=== PATIENT | male | born 1965 | race African-American/Black ===

== ENCOUNTER 2016-06-05 23:15 | Emergency (ER) | payer SELFPAY ==
[~2016-06-05] VITALS: Ht 177.8 cm; Wt 82.0 kg
[2016-06-05 23:27] VITALS: BP 136/98; PULSE 97; RESP 16; TEMP 98.8; O2SAT 96
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
[2016-06-06] MEDS ORDERED: SODIUM CHLOR 0.9% 1000 ML INJ 1,000 ML IV ONE (00:15)
[2016-06-06] MEDS ORDERED: TETANUS/DIPHTHERIA TOXOID ADULT 0.5 ML VIAL IM ONE (00:15)
[2016-06-06] MEDS ORDERED: SODIUM CHLORIDE 0.9% FLUSH 5 ML FLUSH IVF PRN (00:15)
[2016-06-06 00:31] VITALS: RESP 20
[2016-06-06 00:37] LABS: AUTOMATED NEUTROPHIL # 2.9 TH/MM3 (1.8-7.7); BASOPHIL # 0.1 TH/MM3 (0-0.2); BASOPHIL % 0.9 % (0.0-2.0); EOSINOPHIL # 0.1 TH/MM3 (0-0.4); HEMATOCRIT 43.3 % (39.0-51.0); HEMO FLAGS DIFF FINAL; LYMPH % 44.3 % (9.0-44.0); LYMPHOCYTE # 2.6 TH/MM3 (1.0-4.8); MEAN CELL VOLUME 85.5 FL (80.0-100.0); NEUT % 49.8 % (16.0-70.0); PLATELET COUNT 301 TH/MM3 (150-450); RED BLOOD COUNT 5.06 MIL/MM3 (4.50-5.90); WHITE BLOOD COUNT 5.9 TH/MM3 (4.0-11.0)
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
[2016-06-06 01:07] LABS: BICARBONATE 23.9 MEQ/L (21.0-32.0)
[2016-06-06 01:08] LABS: POTASSIUM 3.8 MEQ/L (3.5-5.1)
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
[2016-06-06 08:17] VITALS: BP 127/78
== END 2016-06-06 08:28 | disposition home or self-care (01) ==
LOC: NEPE 23:15
DX: F10.121 Alcohol abuse with intoxication delirium (principal); R41.82 Altered mental status, unspecified; I10 Essential (primary) hypertension; S00.83XA Contusion of other part of head, initial encounter; V19.9XXA Pedal cyclist (driver) (passenger) injured in unspecified traffic accident, initial encounter; Y93.55 Activity, bike riding; Y92.414 Local residential or business street as the place of occurrence of the external cause; F17.210 Nicotine dependence, cigarettes, uncomplicated; Z23 Encounter for immunization
CPT/HCPCS: 70450; 70486; 71010; 72125; 72170; 80048; 80307; 85025; 90471; 90714; 96360; 99285; J7030

== ENCOUNTER 2017-03-08 15:11 | Emergency (ER) | payer SELFPAY ==
[~2017-03-08] VITALS: Ht 175.3 cm; Wt 72.7 kg
[2017-03-08 15:12] VITALS: BP 160/99; PULSE 110; RESP 12; TEMP 97.6; O2SAT 97
--- NOTE | 2017-03-08 17:11 | PD ---
HPI Chief Complaint: Cold / Flu Symptoms Time Seen by Provider: 16:55 Travel History International Travel<30 days: No Contact w/Intl Traveler<30days: No Traveled to known affect area: No History of Present Illness HPI 52 -year-old male here requesting a return to work note. Patient reports he had fever, cough, body aches, diarrhea over week ago. The symptoms kept him out of work for approximately lost week. He reports he is feeling better today and has no current symptoms. Patient is also requesting that a painful lump in his left posterior scalp evaluated. He reports it's been there for greater than a year. Occasionally drains a thick white discharge which is foul- smelling. He denies fever or chills. PFSH Past Medical History Medical History: Denies Significant Hx Autoimmune Disease: No Blood Disorders: No Cancer: No Cardiovascular Problems: Yes High Cholesterol: No Diabetes: No Diminished Hearing: No Endocrine: No Gastrointestinal Disorders: No Genitourinary: Yes Hypertension: Yes Immune Disorder: No Implanted Vascular Access Dvce: No Musculoskeletal: Yes Neurologic: Yes Psychiatric: No Reproductive: No Respiratory: No Immunizations Current: No Thyroid Disease: No Tetanus Vaccination: < 5 Years Past Surgical History Surgical History: No Previous Surgery Arteriovenous Shunt: No Insulin Pump: No Joint Replacement: No Pacemaker: No Other Surgery: No Social History Alcohol Use: No (denies) Tobacco Use: No (denies) Substance Use: No (denies + in past) Allergies-Medications (Allergen,Severity, Reaction): Coded Allergies: No Known Allergies (Verified Adverse Reaction, Unknown, 03/08/17) Reported Meds & Prescriptions Reported Meds & Active Scripts Active No Active Prescriptions or Reported Medications Review of Systems Except as stated in HPI: all other systems reviewed are Neg General / Constitutional: No: Fever Physical Exam Narrative GENERAL: Alert male. Well-appearing. SKIN: Warm and dry. HEAD: Normocephalic. 2 cm diameter soft mass to the left posterior scalp with a large central pore. The areas consistent with a sebaceous cyst. No evidence of infection EYES: No scleral icterus. NECK: Supple, trachea midline. No lymphadenopathy. No meningismus CARDIOVASCULAR: Regular rate and rhythm. Heart rate low 90s. RESPIRATORY: Breath sounds equal bilaterally. No accessory muscle use. GASTROINTESTINAL: Abdomen soft, non-tender, nondistended. MUSCULOSKELETAL: No cyanosis, or edema. BACK: Nontender without obvious deformity. No CVA tenderness. Data Data Last Documented VS Vital Signs Date Time Temp Pulse Resp B/P (MAP) Pulse Ox O2 Delivery O2 Flow Rate FiO2 03/08/17 15:12 97.6 110 12 160/99 (119) 97 MDM Medical Decision Making Medical Screen Exam Complete: Yes Emergency Medical Condition: Yes Differential Diagnosis Influenza, viral illness, sebaceous cyst, abscess Narrative Course 52-year-old male here requesting a return to work note after he had what sounds to have been a viral illness. He is currently symptom out of. He also has what appears to be a sebaceous cyst the left posterior scalp. No evidence of infection. Diagnosis Primary Impression: Sebaceous cyst Referrals: [facility] Departure Forms: Tests/Procedures, Work Release Enter return to work date: Mar 09, 2017 Scripts No Active Prescriptions or Reported Meds Disposition: 01 DISCHARGE HOME Condition: Stable Sangeeta Whalen Mar 08, 2017 17:11
== END 2017-03-08 17:29 | disposition home or self-care (01) ==
LOC: NEPK 15:11
DX: L72.3 Sebaceous cyst (principal)
CPT/HCPCS: 99281